=== PATIENT | female | born 1955 | race Caucasian/White ===

== ENCOUNTER 2023-08-03 07:39 | Day surgery (SDC) | payer BC ==
[~2023-08-03] VITALS: Ht 149.9 cm; Wt 54.4 kg
[2023-08-03 08:18] VITALS: BP_SYST 143; PULSE 55; RESP 16; TEMP 97.4; O2SAT 97
[2023-08-03] MEDS ORDERED: GASTROGRAFIN 120 ML ONE (09:34)
== END 2023-08-03 10:57 | disposition home or self-care (01) ==
LOC: SMU 07:39 → SDS 07:39
PROVIDERS: ATTEND Internal Medicine
DX: K94.23 Gastrostomy malfunction (principal); I10 Essential (primary) hypertension; E11.9 Type 2 diabetes mellitus without complications; F32.A Depression, unspecified; M19.90 Unspecified osteoarthritis, unspecified site; Z88.0 Allergy status to penicillin; Z87.891 Personal history of nicotine dependence; Z79.4 Long term (current) use of insulin; Z79.899 Other long term (current) drug therapy
CPT/HCPCS: 43762; 74240; 82948; G0378; Q9963